=== PATIENT | male | born 1965 | race Caucasian/White ===

== ENCOUNTER 2019-02-10 02:25 | Emergency (ER) | payer OTHER ==
[~2019-02-10] VITALS: Ht 170.2 cm; Wt 68.0 kg
--- NOTE | 2019-02-10 02:30 | NUR ---
PT AMBULATED W/ STEADY GATE TO BED 7.
[2019-02-10 02:33] VITALS: BP 170/104
--- NOTE | 2019-02-10 02:40 | NUR ---
PT BIB FRIEND C/O ABD PAIN. PT STATES SUDDEN ONSET OF ABD PAIN X2 DAYS. PT STATES 5/10 INTERMITTENT PAIN, CRAMPING; DENIES TRAUMA. +N/D, PT VOMITED THIN CLEAR EMESIS 3 TIMES TODAY. +CONSTIPATION. +TENDERNESS THOUGH OUT ABD; ABD FLAT AND SOFT. --BOWEL SOUNDS ACTIVE X4 QUAD. SKIN WARM, DRY AND INTACT. PT ACTING APPROPRIATLY. PT IN GOWN, IN BED; BED IN LOWER LOCKED POSITION. ER MD AWARE OF PT STATUS. WILL CONTINUE TO MONITOR. PMH: DENIES RX: DENIES
[2019-02-10] MEDS ORDERED: NACL 0.9% 1,000 ML IV ONE (02:50)
[2019-02-10] MEDS ORDERED: KETOROLAC 30 MG/ML VIAL IVP ONE (02:50)
[2019-02-10] MEDS ORDERED: ONDANSETRON 4 MG/2 ML VIAL IVP ONE (02:50)
[2019-02-10 03:09] LABS: APPEARANCE,URINE CLEAR (CLEAR); BILIRUBIN,URINE 1+ (NEGATIVE); BLOOD, URINE NEGATIVE (NEGATIVE); COLOR,URINE YELLOW (YELLOW); LEUKOCYTE ESTERASE ,URINE NEGATIVE (NEGATIVE); NITRITE, URINE NEGATIVE (NEGATIVE); UGLUCOSE NEGATIVE (NEGATIVE)
[2019-02-10 03:11] LABS: BASOPHILS # (AUTO) 0.2 K/uL (0.00-0.22); BASOPHILS % (AUTO) 1.3 % (0.0-2.0); EOSINOPHILS # (AUTO) 0.2 K/uL (0-0.4); EOSINOPHILS % (AUTO) 1.5 % (0.0-4.0); HEMATOCRIT 47.7 % (36-52); HEMOGLOBIN 15.7 g/dL (12.0-18.0); LYMPHOCYTES % (AUTO) 15.3 % (20.5-51.1); MEAN CORPUSCULAR HEMOGLOBIN 26 pg (27-31); MEAN CORPUSCULAR HGB CONC 33 g/dL (33-37); MEAN CORPUSCULAR VOLUME 78.8 fL (80-94); MONOCYTES # (AUTO) 0.7 K/uL (0.8-1.0); MONOCYTES % (AUTO) 5.1 % (1.7-9.3); NEUTROPHILS % (AUTO) 76.8 % (42.2-75.2); PLATELET COUNT (AUTO) 371 K/uL (140-450); RED BLOOD CELL COUNT(AUTO) 6.05 MIL/uL (4.20-6.10); RED CELL DISTRIBUTION WIDTH 14.6 % (11.6-13.7)
--- NOTE | 2019-02-10 03:14 | NUR ---
PT TO CT VIA WHEELCHAIR BY TECH.
[2019-02-10 03:24] LABS: RBC,URINE 0-5 /HPF (0-5)
[2019-02-10 03:25] LABS: URINE AMORPHOUS URATE 2+ /HPF (None Seen); WBC,URINE 0-5 /HPF (0-5)
[2019-02-10 03:27] LABS: ALBUMIN 3.7 g/dL (3.4-5.0); ANION GAP 11.5 (8-16); CARBON DIOXIDE 30.3 mmol/L (21-32); POTASSIUM 3.8 mmol/L (3.5-5.1); TOTAL BILIRUBIN 0.6 mg/dL (0.0-1.0)
--- NOTE | 2019-02-10 03:48 | NUR ---
FARHEEN FROM [facility] CALLED IN CRITICAL RESULTS FOR CT; PROXIMAL AND MID SMALL BOWEL DISTENTION W/ DECOMPRESSED DISTAL SMALL BOWEL, CONCERNING FOR MID/DISTAL SMALL BOWEL OBSTRUCTION. ER AWARE.
--- NOTE | 2019-02-10 05:00 | NUR ---
COMFORT MEASURES PROVIDED, PT STATES 0/10 PAIN AT THIS TIME. FRIEND AT BEDSIDE. PT ACTING APPROPRIATLY.
[2019-02-10 05:45] VITALS: BP 132/82
--- NOTE | 2019-02-10 05:48 | NUR ---
Patient discharged by Dr. Aggarwal, with v/s stable. Patient states he is ready to go home, 0/10 pain at this time; patient acting appropriatly. IV d/c tip intact, bleeding controlled bandage applied; sight benign. Written and verbal after care instructions given and explained. Patient verbalized understanding. Ambulatory with steady gait. All questions addressed prior to discharge. Advised to follow up with PMD.
== END 2019-02-10 05:45 | disposition home or self-care (01) ==
LOC: MED 02:25
DX: A08.4 Viral intestinal infection, unspecified (principal)
CPT/HCPCS: 36415; 74176; 80053; 81001; 82150; 83690; 85025; 87040; 96361; 96374; 96375; 99284; J1885; J2405; J7030